=== PATIENT | male | born 1985 | race Caucasian/White ===

== ENCOUNTER 2019-07-01 22:05 | Emergency (ER) | payer SELFPAY ==
[~2019-07-01] VITALS: Ht 167.6 cm; Wt 56.7 kg
[2019-07-02] MEDS ORDERED: NORCO 5-325 TA1 EACH PO (00:45)
== END 2019-07-02 01:10 | disposition home or self-care (01) ==
LOC: ED 22:05
DX: S53.104A Unspecified dislocation of right ulnohumeral joint, initial encounter (principal); S52.041A Displaced fracture of coronoid process of right ulna, initial encounter for closed fracture; F17.200 Nicotine dependence, unspecified, uncomplicated; Z88.0 Allergy status to penicillin; Y04.0XXA Assault by unarmed brawl or fight, initial encounter; Y93.89 Activity, other specified; Y92.89 Other specified places as the place of occurrence of the external cause; Y99.8 Other external cause status